=== PATIENT | female | born 1985 | race Caucasian/White ===

== ENCOUNTER 2019-05-30 09:26 | Inpatient (IN) | payer OTHER ==
[2019-05-30 10:11] VITALS: BMI 31.6
[2019-05-30] MEDS ORDERED: hydrALAZINE 20 MG/ML VIAL SLOW IVP PRN ×2 (10:26→17:08)
[2019-05-30] MEDS ORDERED: Promethazine HCl 25 MG/ML VIAL IM PRN ×2 (10:26→16:57)
[2019-05-30] MEDS ORDERED: Lactated Ringer's 1,000 ML IV SCH (10:26)
[2019-05-30] MEDS ORDERED: CEFAZOLIN 2 GM in Premix Bag 1 BAG IVPB SCH ×2 (10:26→12:45)
[2019-05-30] MEDS ORDERED: Bicitra 30 ML UDCUP PO SCH (10:26)
[2019-05-30] MEDS ORDERED: Ondansetron PF 4 MG/2 ML Vial IVP PRN ×3 (10:26→17:08)
[2019-05-30] MEDS ORDERED: FLU VACC QS2019-20(6MOS UP)/PF 60 MCG/0.5 ML SYRINGE IM ONE (10:30)
[2019-05-30 10:55] LABS: Hemoglobin 11.9 g/dL (12.0-16.0); Mean Corpuscular HGB CONC 34.4 g/dL (32.0-36.0); Mean Corpuscular Hemoglobin 33.2 pg (27.0-31.0); Mean Corpuscular Volume 96.5 fL (78.0-98.0); Mean Platelet Volume 8.8 fL (7.4-10.4); Platelet Count 215 thou/uL (130-400); RBC Distribution Width 14.3 % (11.5-14.5); Red Blood Cell (RBC) Count 3.58 mill/uL (4.20-5.40); White Blood Cell (WBC) Count 9.9 thou/uL (4.8-10.8)
[2019-05-30 11:39] LABS: HBSAg Index 0.18 S/CO (0-0.99); Hep B Surf Ag Non-Reactive S/CO (NonReactive); Syphilis Antibody Nonreactive (Nonreactive); Syphilis Antibody Index 0.04 S/CO (<1.00 Non-Reactive)
[2019-05-30] MEDS ORDERED: ePHEDrine/0.9% NaCl/PF SYRINGE 50 mg/10 ml ONE (12:39)
[2019-05-30] MEDS ORDERED: Ketorolac Tromethamine 30 MG/ML VIAL ONE (12:39)
[2019-05-30] MEDS ORDERED: Ondansetron PF 4 MG/2 ML Vial ONE (12:39)
[2019-05-30] MEDS ORDERED: PHENYLEPHRINE-NS 100 MCG/ML 10 ML SYRINGE ONE (12:39)
[2019-05-30] MEDS ORDERED: Fentanyl 100 MCG/2 ML VIAL ONE (12:39)
[2019-05-30] MEDS ORDERED: MORPHINE 5 MG/10 ML PF VIAL ONE (12:39)
[2019-05-30] MEDS ORDERED: Oxytocin 10 UNITS/ML VIAL ONE ×2 (12:39→14:10)
[2019-05-30] MEDS ORDERED: Dexamethasone 4 mg/ml Vial ONE (12:39)
[2019-05-30] MEDS ORDERED: Naloxone HCl 0.4 mg/ml Vial IVP PRN ×2 (16:57)
[2019-05-30] MEDS ORDERED: diphenhydrAMINE 50 MG/ML VIAL IVP PRN (16:57)
[2019-05-30] MEDS ORDERED: Naloxone HCl 0.4 mg/ml Vial IV PRN (16:57)
[2019-05-30] MEDS ORDERED: Meperidine HCl/PF 25 MG/ML VIAL SLOW IVP PRN (16:57)
[2019-05-30] MEDS ORDERED: Ondansetron HCl/PF 4 MG/2 ML Vial IVP PRN (16:57)
[2019-05-30] MEDS ORDERED: Promethazine HCl 25 MG SUPP PR PRN (16:57)
[2019-05-30] MEDS ORDERED: L&D-Morphine 4 MG/ML VIAL SLOW IVP PRN (16:57)
[2019-05-30] MEDS ORDERED: HYDROmorphone 2 MG/ML VIAL SLOW IVP PRN (16:57)
[2019-05-30] MEDS ORDERED: Communication Order-Pharmacy FS SCH (17:00)
[2019-05-30] MEDS ORDERED: Ketorolac Tromethamine 30 MG/ML VIAL IVP SCH (17:00)
[2019-05-30] MEDS ORDERED: Lanolin Ointment 7 GM TUBE TOP PRN (17:08)
[2019-05-30] MEDS ORDERED: Bisacodyl 10 MG SUPP PR PRN (17:08)
[2019-05-30] MEDS ORDERED: Misoprostol 200 MCG TAB PR PRN (17:08)
[2019-05-30] MEDS ORDERED: Acetaminophen 325 MG TAB PO PRN (17:08)
[2019-05-30] MEDS ORDERED: Adacel (T-DAP) 0.5 ML SYRINGE IM ONE (17:08)
[2019-05-30] MEDS ORDERED: diphenhydrAMINE 25 MG CAP PO PRN (17:08)
[2019-05-30] MEDS ORDERED: NS / Oxytocin 40 units/1000ml 1,000 ML IV SCH (17:15)
[2019-05-30] MEDS: Lactated Ringer's 1,000 ML IV SCH (18:35)
[2019-05-30] MEDS: Docusate Calcium (SURFAK) 240 MG CAP PO SCH (22:00)
[2019-05-30] MEDS: Ferrous Sulfate 325 MG TAB PO SCH (22:00)
[2019-05-30] MEDS: Ketorolac Tromethamine 30 MG/ML VIAL IVP PRN (23:55)
[2019-05-31] MEDS: Lactated Ringer's 1,000 ML IV SCH ×3 (01:15→16:02)
[2019-05-31] MEDS ORDERED: Zolpidem Tartrate 5 MG TAB PO PRN (05:00)
[2019-05-31] MEDS ORDERED: HYDROcodone/Acetaminophen 5/325 mg Tablet PO PRN (05:00)
[2019-05-31] MEDS ORDERED: Meperidine HCl/PF 25 MG/ML VIAL IM PRN (05:00)
[2019-05-31] MEDS: Ketorolac Tromethamine 30 MG/ML VIAL IVP PRN (05:09)
[2019-05-31 06:23] LABS: Hemoglobin 9.6 g/dL (12.0-16.0); Mean Corpuscular HGB CONC 34.2 g/dL (32.0-36.0); Mean Corpuscular Hemoglobin 33.8 pg (27.0-31.0); Mean Corpuscular Volume 98.8 fL (78.0-98.0); Platelet Count 173 thou/uL (130-400); RBC Distribution Width 14.4 % (11.5-14.5); Red Blood Cell (RBC) Count 2.83 mill/uL (4.20-5.40); White Blood Cell (WBC) Count 10.8 thou/uL (4.8-10.8)
[2019-05-31] MEDS: Ferrous Sulfate 325 MG TAB PO SCH ×2 (08:31→21:19)
[2019-05-31] MEDS: Prenatal Vitamin 1 TAB PO SCH (08:31)
[2019-05-31] MEDS: Docusate Calcium (SURFAK) 240 MG CAP PO SCH ×2 (08:31→21:19)
[2019-05-31] MEDS: HYDROcodone/Acetaminophen 5/325 mg Tablet PO PRN ×4 (09:59→22:10)
[2019-05-31] MEDS: Simethicone Chewable 80 MG TAB PO PRN ×2 (09:59→18:04)
[2019-05-31] MEDS: Ibuprofen 800 MG TAB PO SCH ×2 (14:07→21:18)
--- NOTE | 2019-05-31 23:37 | OP ---
DATE OF PROCEDURE: 05/30/2019 CO-SURGEON: Alpa Frost MD. PREOPERATIVE DIAGNOSES: 1. Term intrauterine at 39 weeks. 2. Declines trial of labor. POSTOPERATIVE DIAGNOSES: 1. Term intrauterine at 39 weeks. 2. Declines trial of labor. PROCEDURE: Primary low-transverse section. ANESTHESIA: Spinal catheterization. FINDINGS: 1. Vertex presentation, vigorous female, 6 pounds 9 ounces, Apgars 8 and 9. 2. 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 3. Pelvic adhesions secondary to endometriosis. COMPLICATIONS: None. SPECIMENS REMOVED: Cord blood. BLOOD LOSS: Approximately 600 mL. HISTORY AND INDICATIONS: Ms. Malathi Landers is a very pleasant 34-year-old white female, G1, P0, who is followed in our clinic for obstetric care. Malathi presented to Labor and Delivery this morning for scheduled primary section for breech presentation. Ultrasound preoperatively revealed the baby had spontaneously everted to vertex presentation from dick breech. We discussed the findings with the patient and her family. Malathi became very upset and anxious about a potential induction of labor. After discussion with her family, she declined the trial of labor and wished to proceed with a scheduled primary low-transverse section. We discussed the risks, benefits, and alternatives of the surgery. Her surgical disclosures had previously been signed and placed in the chart. DESCRIPTION OF PROCEDURE: After consent and counseling, Ms. Landers was taken to the operating room, and adequate level of anesthesia was obtained via spinal catheterization. The patient was prepped and draped in usual sterile fashion for abdominal surgery. A Cordero was placed in the bladder which was noted to be draining clear urine. Team time-out was performed per protocol. Attention was then turned to performing the primary low-transverse section. A Pfannenstiel incision was made and the old scar was excised. The incision was carried sharply to the fascia which was also sharply incised. The midline was identified, and the rectus muscles were retracted laterally. The abdominal peritoneal cavity was entered with usual safeguard carried out. A retractor was placed and a bladder flap was created on the vesicouterine peritoneum. A bladder blade was then placed. A low-transverse incision was made on the well-developed lower uterine segment. Upon entering the amniotic sac, a copious amount of light-stained meconium amniotic fluid was visualized. Head was delivered and baby was bulb suctioned on the abdomen. Shoulders and body were then delivered in an atraumatic fashion. The cord was doubly clamped and cut and the infant was handed to the Neonatology Team in attendance for delivery. The infant was a vigorous viable female, weighing 6 pounds and 9 ounces with Apgars of 8 and 9 obtained in 1 and 5 minutes respectively. Cord blood was obtained. The placenta was manually removed from the uterus. The uterus was exteriorized and good tone was noted. The uterine cavity was cleared of any remaining clot and fluid. The low-transverse incision was closed with a running locking ligature of #1 chromic. Several afutis-da-jflab ligatures of #1 chromic were placed to facilitate strength and hemostasis. The vesicouterine peritoneum was reapproximated to the lower segment with a running ligature of 2-0 Monocryl suture. The posterior cul-de-sac and gutters were cleared of clot and fluid. There was an extensive amount of endometriosis within the posterior cul-de-sac which was chocolate in appearance. There was also an endometrioma on the left ovary, which was debrided. There were filmy adhesions in the posterior cul-de-sac in the tubo-ovarian adnexal regions bilaterally. Lysis of adhesions was performed. The fallopian tubes were returned to their normal anatomic location. The ovaries were normal. Lap, sponge, and needle counts were correct. The uterus was returned to the abdomen and good tone and hemostasis were appreciated. Seprafilm was applied to the low-transverse incision, the anterior aspect of the uterus and the fallopian tubes bilaterally for adhesion prevention. The peritoneum was closed with a running ligature of 2-0 Vicryl. The rectus muscles were reapproximated in the midline with interrupted ligatures of 2-0 Vicryl and 0 chromic suture. The fascia was closed with 2 ligatures of 0 Vicryl which were tied in the midline. Good fascial integrity was appreciated. The incision was irrigated with copious amount of warm normal saline. Hemostasis was obtained with Bovie cauterization. The subcutaneous tissue was closed with interrupted ligatures of 2-0 plain. The skin was closed with a subcuticular stitch of 4-0 Monocryl and dressed with Dermabond. A pressure dressing and ice packs were subsequently placed. Lap, sponge, and needle counts were correct x3. Estimated blood loss in the surgical procedure was approximately 600 mL. The patient was awakened and taken to the recovery room in good condition. Immediately following the surgery, the patient and family were made aware of the surgical procedure and operative findings. The baby was returned to the mother shortly for [id number] and . Mother and baby were doing well postoperatively. The patient and her family reported they were very appreciative of the care received here at [facility] this afternoon. Job ID: [id number]
[2019-06-01] MEDS: Lactated Ringer's 1,000 ML IV SCH ×2 (04:01→07:43)
[2019-06-01] MEDS: Ibuprofen 800 MG TAB PO SCH (05:20)
[2019-06-01] MEDS: HYDROcodone/Acetaminophen 5/325 mg Tablet PO PRN (05:20)
[2019-06-01] MEDS: Docusate Calcium (SURFAK) 240 MG CAP PO SCH (08:53)
[2019-06-01] MEDS: Prenatal Vitamin 1 TAB PO SCH (08:53)
[2019-06-01] MEDS: Ferrous Sulfate 325 MG TAB PO SCH (08:53)
[2019-06-01 10:53] VITALS: BP 140/81; TEMP 98.2
== END 2019-06-01 13:25 | disposition home or self-care (01) | DRG 788 ==
LOC: L&D 09:26 → EDSTATUS 11:07 → 3SW 18:16
PROVIDERS: ADMIT Obstetrics & Gynecology; ATTEND Obstetrics & Gynecology
PROC: 10D00Z1 Extraction of Products of Conception, Low, Open Approach (ICD-10-PCS; principal; 2019-05-30)
PROC: 0UB10ZZ Excision of Left Ovary, Open Approach (ICD-10-PCS; 2019-05-30)
PROC: 3E0P05Z Introduction of Adhesion Barrier into Female Reproductive, Open Approach (ICD-10-PCS; 2019-05-30)
DX: O32.1XX0 Maternal care for breech presentation, not applicable or unspecified (principal); O99.824 Streptococcus B carrier state complicating childbirth; N80.0 Endometriosis of uterus; N80.1 Endometriosis of ovary; N73.6 Female pelvic peritoneal adhesions (postinfective); O99.89 Other specified diseases and conditions complicating pregnancy, childbirth and the puerperium; Z3A.39 39 weeks gestation of pregnancy; Z37.0 Single live birth
CPT/HCPCS: 36415; 85027; 86780; 86850; 86870; 86900; 86901; 87340; J0360; J0690; J1100; J1885; J2274; J2405; J2550; J2590; J3010; Q0163